=== PATIENT | male | born 1960 | race Caucasian/White ===

== ENCOUNTER 2017-02-13 20:44 | Emergency (ER) | payer OTHER ==
[~2017-02-13] VITALS: Ht 180.3 cm; Wt 81.0 kg
--- NOTE | 2017-02-13 21:01 | EMERGENCY ROOM VISIT NOTE ---
History Report prepared by Rashidaibguy: Tracey Mayer Under the Supervision of: Dr. Jorge Leiva M.D. First contact with patient: 20:50 Chief Complaint: SYNCOPE Stated Complaint: SYNCOPE History of Present Illness The patient is a 56 year old male who presents to the Emergency Room with complaints of a syncopal episode that occurred prior to arrival. He was brought to the ED accompanied by 2 Corrections Officers from [facility], where he resides. Nursing reports he was lifting weights this evening when he became dizzy, short of breath and began to feel weak. He walked over to get water, when he experienced a syncopal episode and collapsed to the floor. He was taken to the [facility], where they decided to bring him to the ED. The patient reports he felt "fine" earlier today and was not doing any unusual exercises today. He denies any recent chest pain or abdominal pain. Source of History: patient, nursing staff Onset: MENTAL RETARDATION NURSE Position: other (global) Timing: resolved Associated Symptoms: + SOB, + weakness, No chest pain, No abdominal pain Review of Systems See HPI for pertinent positives & negatives. A total of 10 systems reviewed and were otherwise negative. Past Medical & Surgical Medical Problems: (1) No significant past medical history Social History Smoking Status: Current Some Day Smoker Alcohol Use: none Drug Use: none Marital Status: single Housing Status: other ([facility]) Occupation Status: unemployed Current/Historical Medications No Active Prescriptions or Reported Meds Allergies Coded Allergies: No Known Allergies (Unverified , 02/13/17) Physical Exam Vital Signs Date Time Temp Pulse Resp B/P (MAP) Pulse Ox O2 Delivery O2 Flow Rate FiO2 02/13/17 22:38 73 126/76 99 02/13/17 22:08 66 127/76 99 Room Air 02/13/17 21:25 100 Room Air 02/13/17 21:16 36.5 62 120/71 100 Room Air 02/13/17 21:07 69 Physical Exam GENERAL: Patient is a healthy-appearing well-nourished 56 year old male. HEAD: Normocephalic atraumatic EYES: Ocular movements intact pupils equal and react to light OROPHARYNX mucous membranes are moist no exudates present no erythema or edema present NECK: Supple no nuchal rigidity CHEST: Good equal expansion LUNGS: Clear and equal to auscultation CARDIAC: Normal S1 and S2 ABDOMEN: Soft nontender no guarding BACK: No CVA tenderness EXTREMITIES: No pain upon palpation normal muscle strength in all groups no clubbing cyanosis or edema NEURO: Patient is following commands and answering questions appropriately. Alert and oriented x3 Cranial Nerves 2-12 grossly intact Medical Decision & Procedures ER Provider Diagnostic Interpretation: Radiology results as stated below per my review and radiologist interpretation: CHEST ONE VIEW PORTABLE CLINICAL HISTORY: 56 years-old Male presenting with Pt c/o syncope. TECHNIQUE: Portable upright AP view of the chest was obtained. COMPARISON: None. FINDINGS: Cardiomediastinal silhouette normal. Lungs and pleural spaces clear. Cortical compression plate and screw fixation of the right clavicle. Upper abdomen normal. IMPRESSION: 1. No acute cardiopulmonary disease. Electronically signed by: Reji Li M.D. 02/13/2017 9:56 PM Laboratory Results 02/13/17 21:32 Red Blood Count 4.61, Mean Corpuscular Volume 92.2, Mean Corpuscular Hemoglobin 30.8, Mean Corpuscular Hemoglobin Concent 33.4, Mean Platelet Volume 10.4, Neutrophils (%) (Auto) 82.9, Lymphocytes (%) (Auto) 5.9, Monocytes (%) (Auto) 10.2, Eosinophils (%) (Auto) 0.3, Basophils (%) (Auto) 0.3, Neutrophils # (Auto ) 12.40, Lymphocytes # (Auto) 0.89, Monocytes # (Auto) 1.52, Eosinophils # (Auto ) 0.05, Basophils # (Auto) 0.04 02/13/17 21:32 Test 02/13/17 21:32 White Blood Count 14.96 K/uL (4.8-10.8) Red Blood Count 4.61 M/uL (4.7-6.1) Hemoglobin 14.2 g/dL (14.0-18.0) Hematocrit 42.5 % (42-52) Mean Corpuscular Volume 92.2 fL (80-100) Mean Corpuscular Hemoglobin 30.8 pg (25-34) Mean Corpuscular Hemoglobin Concent 33.4 g/dl (32-36) Platelet Count 214 K/uL (130-400) Mean Platelet Volume 10.4 fL (7.4-10.4) Neutrophils (%) (Auto) 82.9 % Lymphocytes (%) (Auto) 5.9 % Monocytes (%) (Auto) 10.2 % Eosinophils (%) (Auto) 0.3 % Basophils (%) (Auto) 0.3 % Neutrophils # (Auto) 12.40 K/uL (1.4-6.5) Lymphocytes # (Auto) 0.89 K/uL (1.2-3.4) Monocytes # (Auto) 1.52 K/uL (0.11-0.59) Eosinophils # (Auto) 0.05 K/uL (0-0.5) Basophils # (Auto) 0.04 K/uL (0-0.2) RDW Standard Deviation 46.4 fL (36.4-46.3) RDW Coefficient of Variation 13.7 % (11.5-14.5) Immature Granulocyte % (Auto) 0.4 % Immature Granulocyte # (Auto) 0.06 K/uL (0.00-0.02) Nucleated RBC Absolute Count (auto) 0.02 K/uL (0-0) Nucleated Red Blood Cells % 0.1 % Anion Gap 8.0 mmol/L (3-11) Est Creatinine Clear Calc Drug Dose 67.1 ml/min Estimated GFR () 69.1 Estimated GFR (Non- 59.6 BUN/Creatinine Ratio 11.1 (10-20) Calcium Level 8.7 mg/dl (8.5-10.1) Total Bilirubin 0.5 mg/dl (0.2-1) Direct Bilirubin 0.1 mg/dl (0-0.2) Aspartate Amino Transf (AST/SGOT) 16 U/L (15-37) Alanine Aminotransferase (ALT/SGPT) 18 U/L (12-78) Alkaline Phosphatase 68 U/L (45-117) Total Creatine Kinase 134 U/L (39-308) Creatine Kinase MB 1.3 ng/ml (0.5-3.6) Creatine Kinase MB Ratio 1.0 (0-3.0) Troponin I < 0.015 ng/ml (0-0.045) Total Protein 6.5 gm/dl (6.4-8.2) Albumin 3.5 gm/dl (3.4-5.0) Thyroid Stimulating Hormone (TSH) 3.150 uIu/ml (0.300-4.500) Labs reviewed by ED physician. ECG Indication: syncope Rate (beats per minute): 65 Rhythm: normal sinus Findings: no acute ischemic change, no ectopy ED Course 2055: Past medical records reviewed. The patient was evaluated in room A2. A complete history and physical examination was performed. 2237: I reevaluated the patient and he is resting comfortably. I discussed his results and discharge instructions and he verbalized complete understanding and agreement. Medical Decision Prior records/ancillary studies reviewed. Triage Nursing notes reviewed. The patient's history was concerning for syncope. Differential diagnosis: Etiologies such as vasovagal event, infection, hypoglycemia, electrolyte abnormalities, cardiac sources, intracerebral event, toxicologic, neurologic, as well as others were entertained. This is a 56-year-old male who presents to emergency department after vasovagal episode. The patient had a warning that the episode was about to occur. He does have an elevation in his white blood count cell count however I will note he is afebrile and is not tachycardic and is normotensive. Serial abdominal examinations were performed on the patient in the emergency department and at no time did the patient exhibited a surgical abdomen. He is a normal liver profile normal renal profile normal cardiac enzymes and a normal EKG. Due to fluid shortage the patient was orally hydrated with fluids in the emergency department. I do feel he is well enough to be discharged. Both patient and caregivers were in agreement with the treatment plan. Medication Reconcilliation Current Medication List: was personally reviewed by me Blood Pressure Screening Patient's blood pressure: Normal blood pressure Blood pressure disposition: Did not require urgent referral Impression Primary Impression: Vasovagal episode Scribe Attestation The scribe's documentation has been prepared under my direction and personally reviewed by me in its entirety. I confirm that the note above accurately reflects all work, treatment, procedures, and medical decision making performed by me. Departure Information Dispostion Other Prescriptions No Active Prescriptions or Reported Meds Referrals No Doctor, Assigned (PCP) Patient Instructions ED Near Syncope Vasovagal, [facility], Treatment for Vasovagal Syncope, Understanding Vasovagal Syncope Additional Instructions Increase fluids next 48 hours You have been examined and treated today on an emergency basis only. This is not a substitute for, or an effort to provide, complete comprehensive medical care. It is impossible to recognize and treat all injuries or illnesses in a single emergency department visit. It is therefore important that you follow up closely with your PCP. Call as soon as possible for an appointment. Thank you for your time and consideration. I look forward to speaking with you again soon. Please don't hesitate to call us if you have any questions.
[2017-02-13 21:16] VITALS: TEMP 36.5; Ht 180.3 cm; Wt 81.0 kg
[2017-02-13 21:25] VITALS: O2SAT 100
[2017-02-13 21:47] LABS: BASO % 0.3 %; BASO ABS # 0.04 K/uL (0-0.2); COMPLETE YES; EOS % 0.3 %; HEMATOCRIT 42.5 % (42-52); IG% 0.4 %; LYMPH % 5.9 %; LYMPH ABS # 0.89 K/uL (1.2-3.4); MEAN CELL VOLUME 92.2 fL (80-100); MEAN CORPUSCULAR HEMOGLOBIN 30.8 pg (25-34); MEAN CORPUSCULAR HGB CONC 33.4 g/dl (32-36); MEAN PLATELET VOLUME 10.4 fL (7.4-10.4); MONO % 10.2 %; NEUT % 82.9 %; PLATELET COUNT 214 K/uL (130-400); RED BLOOD COUNT 4.61 M/uL (4.7-6.1); WHITE BLOOD COUNT 14.96 K/uL (4.8-10.8)
--- NOTE | 2017-02-13 21:57 | DIAGNOSTIC IMAGING REPORT ---
CHEST ONE VIEW PORTABLE CLINICAL HISTORY: 56 years-old Male presenting with Pt c/o syncope. TECHNIQUE: Portable upright AP view of the chest was obtained. COMPARISON: None. FINDINGS: Cardiomediastinal silhouette normal. Lungs and pleural spaces clear. Cortical compression plate and screw fixation of the right clavicle. Upper abdomen normal. IMPRESSION: 1. No acute cardiopulmonary disease. Electronically signed by: Reji Li M.D. 02/13/2017 9:56 PM Dictated Date/Time: 02/13/2017 9:55 PM
[2017-02-13 22:08] LABS: BLOOD UREA NITROGEN 15 mg/dl (7-18); BUN/CREATININE RATIO 11.1 (10-20); CALCIUM 8.7 mg/dl (8.5-10.1); CARBON DIOXIDE 25 mmol/L (21-32); CHLORIDE 104 mmol/L (98-107); CREATININE 1.34 mg/dl (0.60-1.40); GLUCOSE 120 mg/dl (70-99); POTASSIUM 3.7 mmol/L (3.5-5.1); SODIUM 137 mmol/L (136-145)
[2017-02-13 22:18] LABS: ALKALINE PHOSPHATASE 68 U/L (45-117); ALT/SGPT 18 U/L (12-78); AST/SGOT 16 U/L (15-37)
[2017-02-13 22:38] VITALS: BP 126/76; PULSE 73; O2SAT 99
== END 2017-02-13 22:39 | disposition home or self-care (01) ==
LOC: C.ED 20:48 → C.EDA 22:39
DX: R55 Syncope and collapse (principal); F17.200 Nicotine dependence, unspecified, uncomplicated